=== PATIENT | male | born 1965 | race Caucasian/White ===

== ENCOUNTER 2022-04-13 09:18 | Emergency (ER) | payer OTHER ==
[~2022-04-13] VITALS: Ht 175.3 cm; Wt 95.3 kg
--- NOTE | 2022-04-13 09:18 | NUR ---
BIBS C/O SORE THROAT AND NASAL CONGESTION SINCE LAST, TOOK COVID TEST THIS MORNING NEGATIVE, TOOK AZELASTINE HCL WHICH HELPED WITH HIS NASAL CONGESTION. PT AFEBRILE, NO RESP DISTRESS NOTED. AWAITING MD HARPER.
--- NOTE | 2022-04-13 09:28 | NUR ---
DR STEIN AT BEDSIDE
[2022-04-13] MEDS ORDERED: LIDO20SO13 PO (09:40)
[2022-04-13] MEDS ORDERED: DEXAMETHASONE SOD PHOSPHATE 10 MG/ML VIAL ONE (09:42)
[2022-04-13] MEDS ORDERED: LIDOCAINE VISCOUS 2% UD 15 ML UDC ONE (09:43)
[2022-04-13 09:58] VITALS: BP 109/78
[2022-04-13] MEDS ORDERED: DEXAMETHASONE SOD PHOSPHATE 10 MG/ML VIAL IM ONE (10:00)
[2022-04-13] MEDS ORDERED: LIDOCAINE VISCOUS 2% UD 15 ML UDC MM ONE (10:00)
== END 2022-04-13 09:58 | disposition home or self-care (01) ==
LOC: ER 09:26
DX: J02.8 Acute pharyngitis due to other specified organisms (principal)
CPT/HCPCS: 99283; 96372; J1100

== ENCOUNTER 2022-07-08 07:39 | Emergency (ER) | payer OTHER ==
[~2022-07-08] VITALS: Ht 175.3 cm; Wt 95.3 kg
[~2022-07-08 07:39] MED LIST: LIDO20SO13 PO
--- NOTE | 2022-07-08 08:00 | NUR ---
RECEVED PT 56 YRS MALE HERE FOR RX FOR MEDICTION FOR PAIN HAD DENTALE WORK UP 2 DAY AGO FACE SWALLE and pain
[2022-07-08] MEDS ORDERED: KETO10TA2 PO (08:10)
[2022-07-08 08:27] VITALS: BP 122/70
== END 2022-07-08 08:28 | disposition home or self-care (01) ==
LOC: ER 07:43
DX: Z76.0 Encounter for issue of repeat prescription (principal); E78.00 Pure hypercholesterolemia, unspecified; Z79.899 Other long term (current) drug therapy

== ENCOUNTER 2023-05-24 21:14 | Emergency (ER) | payer OTHER ==
[~2023-05-24] VITALS: Ht 175.3 cm; Wt 93.0 kg
[~2023-05-24 21:14] MED LIST changes: +KETO10TA2 PO
[2023-05-24 22:02] VITALS: BP 124/74; TEMP 98.1; O2SAT 98
[2023-05-24] MEDS ORDERED: SULF1TAB48 PO (23:26)
== END 2023-05-24 23:37 | disposition home or self-care (01) ==
LOC: ER 21:16
DX: S61.310A Laceration without foreign body of right index finger with damage to nail, initial encounter (principal); E78.00 Pure hypercholesterolemia, unspecified; Z79.899 Other long term (current) drug therapy; W26.0XXA Contact with knife, initial encounter; Y93.89 Activity, other specified; Y92.89 Other specified places as the place of occurrence of the external cause; Y99.8 Other external cause status